=== PATIENT | male | born 1985 ===

== ENCOUNTER 2018-02-18 04:57 | Emergency (ER) | payer OTHER ==
[2018-02-18 05:12] VITALS: RESP 18
[2018-02-18] MEDS ORDERED: Albuterol-Ipratrop 3 mg / 0.5 (3 ml) UD IH STA (05:29)
--- NOTE | 2018-02-18 05:31 | ED PDOC ---
HPI: CCC, URI, Sore Throat Time Seen by Provider: 02/18/18 05:11 Chief Complaint (Nursing): Fever Chief Complaint (Provider): fever History Per: Patient History/Exam Limitations: no limitations Onset/Duration Of Symptoms: Hrs Current Symptoms Are (Timing): Still Present Associated Symptoms: Cough, Sputum, Nasal Congestion Additional Complaint(s): 32 y/o male present with fever x 6 hours. Associated nasal congestion, productive cough x 5 days. Denies headache, ear pain, shortness of breath, palpitations, abdominal pain, recent travel, sick contacts. No medications taken for relief thus far. Past Medical History Reviewed: Historical Data, Nursing Documentation, Vital Signs Vital Signs: Last Vital Signs Temp 102.7 F H 02/18/18 05:09 Pulse 134 H 02/18/18 05:09 Resp 18 02/18/18 05:09 BP 130/79 02/18/18 05:09 Pulse Ox 96 02/18/18 05:31 - Medical History PMH: No Chronic Diseases - Surgical History Surgical History: No Surg Hx - Family History Family History: States: No Known Family Hx - Allergies Allergies/Adverse Reactions: Allergies Allergy/AdvReac Type Severity Reaction Status Date / Time No Known Allergies Allergy Verified 02/18/18 05:12 Review of Systems ROS Statement: Except As Marked, All Systems Reviewed And Found Negative Constitutional: Positive for: Fever ENT: Positive for: Nose Congestion Respiratory: Positive for: Cough, Sputum Physical Exam - Reviewed Nursing Documentation Reviewed: Yes Vital Signs Reviewed: Yes - Physical Exam Appears: Positive for: Well, Non-toxic, No Acute Distress Head Exam: Positive for: ATRAUMATIC, NORMAL INSPECTION, NORMOCEPHALIC Skin: Positive for: Normal Color Eye Exam: Positive for: Normal appearance ENT: Positive for: Nasal Congestion Cardiovascular/Chest: Positive for: Regular Rate, Rhythm Respiratory: Positive for: Normal Breath Sounds Gastrointestinal/Abdominal: Positive for: Normal Exam Back: Positive for: Normal Inspection Extremity: Positive for: Normal ROM Neurologic/Psych: Positive for: Alert, Oriented - ECG O2 Sat by Pulse Oximetry: 96 - Progress ED Course And Treament: flu, strep, chest xray, ibuprofen duoneb Disposition - Clinical Impression Clinical Impression: Fever in adult - Disposition Disposition Time: 06:20 Condition: STABLE Forms: [employer] (Bulgarian) Patient Signed Over To: Rob Thakkar Handoff Comments: pending xray, re-eval
[2018-02-18] MEDS ORDERED: Albuterol-Ipratrop 3 mg / 0.5 (3 ml) UD ONE (05:53)
--- NOTE | 2018-02-18 07:21 | ED PDOC ---
- ECG O2 Sat by Pulse Oximetry: 98 Medical Decision Making Medical Decision Making: pending CXR report and re-eval CXR neg for pneumonia +cough persists, re-eval feels better after sleeping Rx azithromycin and followup PMD Vitals stable, fever resolved, well appearing Disposition - Clinical Impression Clinical Impression: Fever in adult, Bronchitis - POA Present On Arrival: None - Disposition Referrals: Allergy Physician Service [Outside] Disposition: Routine/Home Disposition Time: 11:01 Condition: STABLE Additional Instructions: Drink plenty of fluids. Followup with your doctor and return to ER for any worse or new symptoms Prescriptions: Azithromycin [Zithromax] 250 mg PO DAILY #6 tab Ibuprofen [Motrin Tab] 600 mg PO Q6 PRN #15 tab PRN Reason: Pain, Moderate (4-7) Instructions: Acute Bronchitis, Fever, Adult (DC), When to Worry About a Fever Forms: [facility] (Maltese)
--- NOTE | 2018-02-18 07:26 | RAD ---
EXAM: XR Chest, 2 Views CLINICAL HISTORY: 32 years old, male; Signs and symptoms; Cough and fever; Symptoms not specified; Additional info: Fever, cough TECHNIQUE: Frontal and lateral views of the chest. COMPARISON: CR - CHEST PA/LAT 2011-06-17 10:28 FINDINGS: Limitations: Radiographic technique - mild. Lungs: No consolidation. Pleural space: No pleural effusion. No pneumothorax. Heart: No cardiomegaly. Mediastinum: Unremarkable. Bones/joints: Few healed right rib fractures. IMPRESSION: 1. No definite acute cardiopulmonary disease. If symptoms persist, consider CT for further evaluation. 2. Incidental/non-acute findings are described above.
[2018-02-18 07:39] VITALS: BP 114/86; TEMP 99.6
[2018-02-18 07:49] VITALS: PULSE 90
[2018-02-18 12:26] VITALS: O2SAT 98
== END 2018-02-18 12:02 | disposition home or self-care (01) ==
LOC: H.ER 04:57
DX: J40 Bronchitis, not specified as acute or chronic (principal)